=== PATIENT | male | born 1980 | race Two or more races ===

== ENCOUNTER 2023-08-18 13:55 | Emergency (ER) | payer OTHER ==
[~2023-08-18] VITALS: Ht 172.7 cm; Wt 90.7 kg
[2023-08-18 16:39] LABS: HEMATOCRIT 47.3 % (39.0-48.0); HEMOGLOBIN 16.1 g/dL (13-16.00); MEAN CELL VOLUME 88.8 fL (80.0-100.00); MEAN CORPUSCULAR HEMOGLOBIN 30.2 pg (27.00-32.0); MEAN CORPUSCULAR HGB CONC 34.1 g/dl (32.0-36.0); PLATELET COUNT 234 K/uL (150-450); RED BLOOD COUNT 5.33 M/uL (4.00-6.00); RED CELL DISTRIBUTION WIDTH 14.4 % (11.5-14.5)
[2023-08-18 16:54] LABS: PH,URINE 7.5 (5.0-8.0); URINE APPEARANCE Clear; URINE BILIRRUBIN Negative (NEGATIVE); URINE BLOOD Negative; URINE COLOR Yellow; URINE GLUCOSE Negative (NEGATIVE); URINE LEUKOCYTE Trace; URINE NITRATE Negative; URINE PROTEIN Negative (NEGATIVE)
[2023-08-18 16:57] LABS: URINE BACTERIA 7.5 uL (0.0-1933); URINE EPITHELIAL CELLS 2.4 uL (0.0-38.8); URINE RBC 5.4 uL (0.0-20.8); URINE WBC 2.7 uL (0.0-23.2)
[2023-08-18 17:02] LABS: CALCIUM 9.1 mg/dL (8.5-10.1); GFR 81.55; POTASSIUM 4.3 mEq/L (3.5-5.1)
== END 2023-08-18 18:23 | disposition home or self-care (01) ==
LOC: ER 13:56
PROVIDERS: Emergency Medicine
DX: R42 Dizziness and giddiness (principal); E16.1 Other hypoglycemia; I10 Essential (primary) hypertension